=== PATIENT | male | born 1980 | race Two or more races ===

== ENCOUNTER 2018-10-03 23:44 | Emergency (ER) | payer SELFPAY ==
[~2018-10-03] VITALS: Ht 175.3 cm; Wt 68.0 kg
[2018-10-03] MEDS ORDERED: NKM (23:49)
--- NOTE | 2018-10-03 23:55 | NUR ---
ED Nurse Note: Patient walked in to ER c/o nidia pain started 1 hour ago. AAO x4, VSS at this time, skin is dry intact, warm to touch. Patient connected to the monitor, will continue to monitor.
--- NOTE | 2018-10-04 00:05 | NUR ---
ED Nurse Note: IV ACCESS ESTABLISHED. BLOOD COLLECTED; SENT DOWN TO LAB. IMAGING AT BEDSIDE.
--- NOTE | 2018-10-04 00:05 | Emergency Room Report ---
History of Present Illness General Chief Complaint: Chest Pain Source: Patient Present Illness HPI This is a 38-year-old male with no past medical history. He presents with chief complaint of headache and chest pain. Onset about an hour ago. He said he has some pressure to the left chest area. Also with throbbing headache. Slight cough. No nausea no vomiting. No diaphoresis. No exertional component. Pain is 7 out of 10. Did not take anything for it. Allergies: Coded Allergies: No Known Allergies (Unverified , 10/03/18) Patient History Past Medical History: see triage record, old chart reviewed Past Surgical History: none Pertinent Family History: none Social History: Denies: smoking Immunizations: other Reviewed Nursing Documentation: PMH: Agreed; PSxH: Agreed Nursing Documentation-PMH Past Medical History: No Stated History Review of Systems Eye: Denies: eye pain, blurred vision ENT: Denies: ear pain, nose congestion, throat swelling Respiratory: Denies: cough, shortness of breath Cardiovascular: Reports: chest pain; Denies: palpitations Gastrointestinal: Denies: abdominal pain, diarrhea, nausea, vomiting Musculoskeletal: Denies: back pain, joint pain Skin: Denies: rash Neurological: Reports: headache; Denies: numbness Endocrine: Denies: increased thirst, increased urine Hematologic/Lymphatic: Denies: easy bruising All Other Systems: negative except mentioned in HPI Physical Exam Vital Signs Date Time Temp Pulse Resp B/P (MAP) Pulse Ox O2 Delivery O2 Flow Rate FiO2 10/03/18 23:46 97.9 62 18 97 Room Air vitals normal Sp02 EP Interpretation: reviewed, normal General Appearance: well appearing, no apparent distress, alert Head: normocephalic, atraumatic Eyes: bilateral eye PERRL, bilateral eye EOMI ENT: hearing grossly normal, normal pharynx Neck: full range of motion, supple, no meningismus Respiratory: chest non-tender, lungs clear, normal breath sounds Cardiovascular #1: regular rate, rhythm, no murmur Gastrointestinal: normal bowel sounds, non tender, no mass, no organomegaly, no bruit, non-distended Musculoskeletal: back normal, gait/station normal, normal range of motion Psychiatric: mood/affect normal Skin: warm/dry Medical Decision Making Diagnostic Impression: Primary Impression: Chest pain Qualified Codes: R07.9 - Chest pain, unspecified Additional Impression: Headache Qualified Codes: R51 - Headache ER Course Patient presents with atypical chest pain. He also has headache and slight cough. This probably a viral infection. No evidence of ACS, PE, dissection to name a few. We'll discharge home. EKG Diagnostic Results Rate: normal Rhythm: NSR ST Segments: no acute changes Rhythm Strip Diag. Results EP Interpretation: yes Rate: 67 Rhythm: NSR, no PVC's, no ectopy Chest X-Ray Diagnostic Results Chest X-Ray Diagnostic Results : Chest X-Ray Ordered: Yes # of Views/Limited/Complete: 1 View Indication: Chest Pain EP Interpretation: Yes Interpretation: no consolidation, no effusion, no pneumothorax, no acute cardiopulmonary disease Impression: No acute disease Electronically Signed by: Johny Gifford MD Last Vital Signs Date Time Temp Pulse Resp B/P (MAP) Pulse Ox O2 Delivery O2 Flow Rate FiO2 10/03/18 23:46 97.9 62 18 97 Room Air Status: improved Disposition: HOME, SELF-CARE Condition: Stable Scripts Ibuprofen* (MOTRIN*) 600 Mg Tablet 600 MG ORAL THREE TIMES A DAY, #30 TAB 0 Refills Prov: Johny Gifford MD 10/04/18 Patient Instructions: Nonspecific Chest Pain Additional Instructions: Follow-up with your doctor in 7 days. Return if symptom worsen. Johny Gifford MD October 04, 2018 00:05
[2018-10-04] MEDS ORDERED: Ketorolac 30mg Inj ONE (00:10)
[2018-10-04] MEDS ORDERED: Ketorolac 30mg Inj IV ONE (00:15)
[2018-10-04 00:21] VITALS: BP 134/89
[2018-10-04 00:28] LABS: BASOPHILS % (AUTO) 1.2 % (0.0-2.0); EOSINOPHILS % (AUTO) 2.1 % (0.0-3.0); HEMATOCRIT 42.7 % (42.0-52.0); HEMOGLOBIN 14.7 G/DL (14.2-18.0); LYMPHOCYTES % (AUTO) 49.2 % (20.0-45.0); MEAN CORPUSCULAR VOLUME 87 FL (80-99); MONOCYTES % (AUTO) 8.3 % (1.0-10.0); NEUTROPHILS % (AUTO) 39.2 % (45.0-75.0); PLATELET COUNT 223 K/UL (150-450); RED BLOOD COUNT 4.94 M/UL (4.70-6.10); WHITE BLOOD COUNT 6.2 K/UL (4.8-10.8)
--- NOTE | 2018-10-04 00:30 | NUR ---
ED Nurse Note: urine sent down
[2018-10-04 00:41] LABS: ANION GAP 4 mmol/L (5-15); BLOOD UREA NITROGEN 15 mg/dL (7-18); CALCIUM 9.5 MG/DL (8.5-10.1); CARBON DIOXIDE 32 MMOL/L (21-32); CHLORIDE 104 MMOL/L (98-107); POTASSIUM 3.6 MMOL/L (3.5-5.1); SODIUM 140 MMOL/L (136-145)
[2018-10-04 00:54] LABS: ALANINE AMINOTRANSFERASE 24 U/L (12-78); ALBUMIN/GLOBULIN RATIO 1.1 (1.0-2.7); ALKALINE PHOSPHATASE 35 U/L (46-116); ASPARTATE AMINO TRANSFERASE 16 U/L (15-37); BILIRUBIN,TOTAL 0.4 MG/DL (0.2-1.0); CKMB 0.9 NG/ML (0.0-3.6); CREATINE KINASE 106 U/L (26-308)
[2018-10-04 00:58] VITALS: BP 134/89
[2018-10-04] MEDS ORDERED: IBUPROFEN600 MG ORAL (01:00)
--- NOTE | 2018-10-04 01:01 | NUR ---
ED Nurse Note: Pt cleared by health care Provider for discharge. DC instructions/prescription was given and explained to pt and verbalized understanding of teachings. All medical deviecs such as ID band removed. Pt is AAO x4, ambulatory and left with all personal belongings.
--- NOTE | 2018-10-04 11:55 | Diagnostic Imaging Report ---
Indication: Chest pain Technique: XRAY Chest 1v Comparison: None Findings: Heart size and mediastinal contours are within normal limits for AP technique. There is no focal airspace consolidation, pneumothorax or pleural effusion. Osseous structures demonstrate no acute abnormality. Impression: No radiographic evidence of acute cardiopulmonary disease.
--- NOTE | 2018-10-04 14:26 | Cardiology Report ---
APPROVED REPORT EKG Measurement Heart [id number] Sinus bradycardia Early repolarization Otherwise normal ECG
== END 2018-10-04 01:12 | disposition home or self-care (01) ==
LOC: EMR 23:59
DX: R07.9 Chest pain, unspecified (principal); R51 Headache
CPT/HCPCS: 36415; 71045; 80053; 82550; 82553; 84484; 85025; 93005; 96374; 99283; J1885

== ENCOUNTER → 2019-08-30 | Emergency (ER) | payer SELFPAY ==
[~2019-08-30] VITALS: Ht 177.8 cm; Wt 77.1 kg
[~2019-08-30] MED LIST: AFRIN NASAL SPR30 ML NASAL; IBUPROFEN600 MG ORAL; NKM; SALINE NASAL SP45 ML NASAL
[2019-08-30 12:00] VITALS: BP 125/87
--- NOTE | 2019-08-30 12:02 | NUR ---
ED Nurse Note: pt walked in to ER from home due to flu like symptoms such as coughing with yellow phlem, chills, fever at home 100F on Tuesday, being sweaty, congestion, runny nose since Tuesday night. pt aao x4 and ambulatory. no SOB noted. pt has concerned that he is living with his elderly mother in law. calm and cooperative. no cardiac or pulmonary distress noted at this time.
--- NOTE | 2019-08-30 12:15 | Emergency Room Report ---
History of Present Illness General Chief Complaint: Flu Like Symptoms Source: Patient Present Illness HPI Disclaimer: Please note that this report is being documented using [employer] technology. This can lead to erroneous entry secondary to incorrect interpretation by the dictating instrument. HPI: 39-year-old male presents for evaluation of fever, myalgia, nasal congestion and cough. Symptoms began 3 days ago. He noted low-grade fevers of 100 degrees taken orally over the past 2 days but these are now resolved. He notes significant nasal congestion, postnasal drip, sore throat and a infrequent and nonproductive cough. No known sick contacts or recent exposures. No recent travel. He has been treating himself with NSAIDs to control fever. He states he felt worse yesterday and starting to improve today. He came to the emergency department requesting COVID-19 testing as he lives with his elderly [id number] and was worried about her exposure. She is not showing any symptoms at this time. Denies any history of lung disease. PMH: Denies PSH: Denies Allergies: Denies Social Hx: Denies Allergies: Coded Allergies: No Known Allergies (Unverified , 10/03/18) COVID-19 Screening Contact w/high risk pt: No Recent Travel to affected area: No Experienced COVID-19 symptoms?: Yes COVID-19 symptoms experienced: Cough, Runny Nose, Flu-Like Symptoms Nursing Documentation-PMH Past Medical History: No Stated History Review of Systems All Other Systems: negative except mentioned in HPI Physical Exam Vital Signs Date Time Temp Pulse Resp B/P (MAP) Pulse Ox O2 Delivery O2 Flow Rate FiO2 08/30/19 11:57 97.9 96 18 125/87 (100) 99 Room Air General: Awake and alert, no acute distress HEENT: NC/AT. EOMI. Cardiovascular: RRR. S1 and S2 normal. No murmur appreciated Resp: Normal work of breathing. No cough, wheezing or crackles appreciated Abdomen: Abdomen is soft, nondistended. Nontender Skin: Intact. No abrasions, laceration or rash over the exposed skin MSK: Normal tone and bulk. Moving all extremities. No obvious deformity. Neuro: Awake and alert. Mentating appropriately. Medical Decision Making Diagnostic Impression: Primary Impression: Suspected 2019 novel coronavirus infection Additional Impression: Influenza-like symptoms ER Course 39-year-old male presenting for evaluation of influenza-like symptoms for the past 3 days. He arrives with stable vital signs, afebrile, no acute distress and no significant or concerning findings on physical exam. He appears to be improving since yesterday and is feeling overall better but was requesting a COVID-19 test as he lives with his elderly [id number]. Based on the patient' s presenting signs, symptoms and physical exam findings, the patient has been screened and is suspected to have COVID-19. Unfortunately, we are unable to test for COVID-19 at this time due to scarcity of testing kits. Patient does not require emergent labs or imaging as he is overall well-appearing. I will prescribe nasal decongestants though he is advised not to use them longer than 3 days to prevent rebound congestion. Also recommending strict isolation procedures at home regarding his elderly [id number]. Information on proper isolation precautions was including the patient's discharge paperwork. He will follow-up with his PMD and return with new or worsening symptoms. He understands and agrees with this treatment plan. Last Vital Signs Date Time Temp Pulse Resp B/P (MAP) Pulse Ox O2 Delivery O2 Flow Rate FiO2 08/30/19 12:00 96 18 Room Air 08/30/19 12:00 97.9 125/87 99 Disposition: HOME, SELF-CARE Condition: Stable Scripts Sodium Chloride (Saline Nasal [place]) 30 Ml [place] 1 SPRAY NASAL THREE TIMES A DAY, #30 SPRAY Prov: Alexei Mathew MD 08/30/19 Oxymetazoline HCl (Afrin) 15 Ml [place] 2 SPRAYS NASAL TWICE A DAY for 3 Days, #30 SPRAY Prov: Alexei Mathew MD 08/30/19 Patient Instructions: Upper Respiratory Infection, Adult Additional Instructions: Call your primary physician as soon as possible to discuss emergency department visit. You may require reevaluation or further testing per your doctor's recommendations. Limit your contact with others as much as possible over the next 14 days. Stay minimum of 6 feet away from others, do not attend large gatherings and clean and disinfect all heavily used surfaces. Follow CDC guidelines for isolation and infection prevention. If you experience any new or worsening symptoms discussed with your doctor or return to the emergency department for reevaluation. Alexei Mathew MD Aug 30, 2019 12:15
--- NOTE | 2019-08-30 12:15 | NUR ---
ED Nurse Note: Pt cleared by health care Provider for discharge. Patient was told not to use nasal spray more than 3 days and pt verbalized understanding. DC instructions/prescription was given and explained to pt and verbalized understanding of teachings. All medical deviecs such as ID band removed. Pt is AAO x4, ambulatory and left with all personal belongings.
[2019-08-30 12:16] VITALS: BP 126/76
== END | disposition home or self-care (01) ==
LOC: EDUNIT# 11:56 → EDBD 12:09 → EMR 12:35
DX: R50.9 Fever, unspecified (principal); M79.10 Myalgia, unspecified site; R09.89 Other specified symptoms and signs involving the circulatory and respiratory systems; R05 Cough; Z03.818 Encounter for observation for suspected exposure to other biological agents ruled out
CPT/HCPCS: 99282